=== PATIENT | male | born 1970 | race African-American/Black ===

== ENCOUNTER 2018-04-27 09:21 | Emergency (ER) | payer SELFPAY ==
[~2018-04-27] VITALS: Ht 177.8 cm; Wt 76.0 kg
[2018-04-27] MEDS ORDERED: SODIUM CHLORIDE 0.9% 1,000 ML IV ONE (09:44)
[2018-04-27 10:32] LABS: CLARITY URINE CLEAR (CLEAR); COLOR URINE YELLOW (YELLOW); KETONES URINE 1+ (NEGATIVE); LEUKOCYTE ESTERASE URINE NEGATIVE (NEGATIVE); NITRITE URINE NEGATIVE (NEGATIVE); OCCULT BLOOD URINE 1+ (NEGATIVE); PH URINE 5.5 (4.5-8.0); PROTEIN URINE NEGATIVE (NEGATIVE); SPECIFIC GRAVITY URINE 1.013 (1.005-1.030); UROBILINOGEN URINE 0.2 E.U./dL (0.2-1.0)
[2018-04-27 10:50] LABS: *AMPHETAMINES SCREEN URINE NEGATIVE (NEGATIVE)
[2018-04-27 10:51] LABS: *BARBITURATES SCREEN URINE NEGATIVE (NEGATIVE); *BENZODIAZEPINES SCREEN URINE NEGATIVE (NEGATIVE); *COCAINE SCREEN URINE PRESUMTIVE POSITIVE (NEGATIVE); CANNABINOID URINE SCREEN PRESUMTIVE POSITIVE (NEGATIVE); METHADONE URINE SCREEN NEGATIVE (NEGATIVE); OPIATES URINE SCREEN NEGATIVE (NEGATIVE)
[2018-04-27 10:52] LABS: PHENCYCLIDINE URINE SCREEN NEGATIVE (NEGATIVE)
[2018-04-27 10:54] LABS: CHLORIDE 104 mEq/L (98-107)
[2018-04-27 10:59] LABS: ETHANOL BLOOD 39 mg/dL
[2018-04-27 11:01] LABS: BASOPHILS % 0.4 % (0.0-2.0); EOSINOPHILS % 0.5 % (0.0-5.0); HEMATOCRIT. 44.7 % (42.0-52.0); HEMOGLOBIN. 15.4 g/dL (14.0-18.0); LYMPHOCYTES % 10.4 % (20.0-50.0); MEAN CORPUSCULAR HEMOGLOBIN 32.3 pg (28.0-32.0); MEAN CORPUSCULAR VOLUME 93.6 fL (80.0-94.0); MEAN PLATELET VOLUME 7.6 fl (7.4-10.4); MONOCYTES % 6.4 % (2.0-8.0); NEUTROPHILS % 82.3 % (40.0-76.0); PLATELET 217 x1000/uL (130-400); RED BLOOD CELL COUNT 4.77 mill/uL (4.7-6.1); RED CELL DISTRIBUTION WIDTH 13.2 % (11.6-14.6)
[2018-04-28 16:00] VITALS: BP 123/80
== END 2018-04-28 16:17 | disposition home or self-care (01) ==
LOC: ER 09:21 → EDBD 09:21 → ER 04-28 16:17
DX: R45.851 Suicidal ideations (principal); F41.0 Panic disorder [episodic paroxysmal anxiety]; R11.2 Nausea with vomiting, unspecified; Z88.1 Allergy status to other antibiotic agents; R07.9 Chest pain, unspecified
CPT/HCPCS: 36415; 71045; 80053; 80305; 81003; 84484; 85025; 93005; 96360; 96361; 99285; G0482; J7030; Z7610

== ENCOUNTER 2018-05-06 06:13 | Emergency (ER) | payer SELFPAY ==
[~2018-05-06] VITALS: Ht 170.2 cm; Wt 84.0 kg
[2018-05-06] MEDS ORDERED: TETANUS, DIPHTHERIA, PERTUSSIS VAC/PF 0.5ML (>7YR OLD) IM ONE (08:30)
[2018-05-06] MEDS ORDERED: BACITRACIN ZINC OINT UDPKT TOP ONE (08:30)
[2018-05-06] MEDS ORDERED: LIDOCAINE HCL/PF 1% 10 MG/ML 5ML VIAL IJ ONE (08:30)
[2018-05-06 10:46] VITALS: BP 138/91
== END 2018-05-06 10:52 | disposition home or self-care (01) ==
LOC: ER 06:13 → EDSEX 06:13 → ER 10:52
DX: S51.811A Laceration without foreign body of right forearm, initial encounter (principal); W26.0XXA Contact with knife, initial encounter; Y93.89 Activity, other specified; Y92.89 Other specified places as the place of occurrence of the external cause; Z88.1 Allergy status to other antibiotic agents; Z23 Encounter for immunization; F17.210 Nicotine dependence, cigarettes, uncomplicated
CPT/HCPCS: 12001; 90471; 90715; 99283; J3490; Z7610

== ENCOUNTER 2018-05-09 18:26 | Emergency (ER) | payer SELFPAY | END 2018-05-09 19:17 | disposition left against medical advice (07) | LOC: ER 18:50 | DX: Z48.01 Encounter for change or removal of surgical wound dressing (principal); Z53.21 Procedure and treatment not carried out due to patient leaving prior to being seen by health care provider ==

== ENCOUNTER 2018-07-07 17:25 | Emergency (ER) | payer SELFPAY ==
[~2018-07-07] VITALS: Ht 170.2 cm; Wt 76.0 kg
[2018-07-07] MEDS ORDERED: KETOROLAC 15MG/ML VIAL IM ONE (18:00)
[2018-07-07] MEDS ORDERED: AMOXICILLIN/POTASSIUM CLAVULANATE 875/125MG TAB PO ONE (19:00)
[2018-07-07 19:02] VITALS: BP 135/81
== END 2018-07-07 19:12 | disposition home or self-care (01) ==
LOC: ER 17:25
DX: S61.451A Open bite of right hand, initial encounter (principal); L03.113 Cellulitis of right upper limb; F17.200 Nicotine dependence, unspecified, uncomplicated; Z90.49 Acquired absence of other specified parts of digestive tract; Z88.1 Allergy status to other antibiotic agents; Y04.1XXA Assault by human bite, initial encounter; Y93.89 Activity, other specified; Y92.89 Other specified places as the place of occurrence of the external cause; Y99.8 Other external cause status
CPT/HCPCS: 73110; 73130; 96372; 99284; J1885

== ENCOUNTER 2019-04-06 07:37 | Emergency (ER) | payer MEDICAID ==
[~2019-04-06] VITALS: Ht 170.2 cm; Wt 81.0 kg
[2019-04-06] MEDS ORDERED: GUAIFENESIN/DM 600MG/30MG ER TAB 12HR PO STA (10:21)
[2019-04-06 11:20] VITALS: BP 128/65
== END 2019-04-06 11:30 | disposition home or self-care (01) ==
LOC: ER 07:37
DX: J40 Bronchitis, not specified as acute or chronic (principal); Z90.89 Acquired absence of other organs; Z88.1 Allergy status to other antibiotic agents
CPT/HCPCS: 71045; 99283

== ENCOUNTER 2019-05-19 05:23 | Emergency (ER) | payer MEDICAID ==
[~2019-05-19] VITALS: Ht 170.2 cm; Wt 78.0 kg
[2019-05-19] MEDS ORDERED: TETANUS, DIPHTHERIA, PERTUSSIS VAC/PF 0.5ML (>7YR OLD) IM ONE (06:30)
[2019-05-19] MEDS ORDERED: ACETAMINOPHEN 325MG TABLET PO STA (07:24)
[2019-05-19 07:59] VITALS: BP 125/65
== END 2019-05-19 08:01 | disposition home or self-care (01) ==
LOC: ER 05:23
DX: S61.451A Open bite of right hand, initial encounter (principal); S00.81XA Abrasion of other part of head, initial encounter; Y07.04 Female partner, perpetrator of maltreatment and neglect; Y04.1XXA Assault by human bite, initial encounter; J06.9 Acute upper respiratory infection, unspecified; Y93.89 Activity, other specified; Y92.89 Other specified places as the place of occurrence of the external cause; Z88.3 Allergy status to other anti-infective agents; Z23 Encounter for immunization
CPT/HCPCS: 71045; 73130; 90471; 90715; 93005; 99283

== ENCOUNTER 2019-05-19 08:39 | Emergency (ER) | payer MEDICAID ==
[~2019-05-19] VITALS: Ht 170.2 cm; Wt 77.0 kg
[2019-05-19 11:12] LABS: BASOPHILS % 0.4 % (0.0-2.0); EOSINOPHILS % 0.5 % (0.0-5.0); HEMATOCRIT. 43.5 % (42.0-52.0); HEMOGLOBIN. 15.6 g/dL (14.0-18.0); LYMPHOCYTES % 11.7 % (20.0-50.0); MEAN CORPUSCULAR VOLUME 91.8 fL (80.0-94.0); MEAN PLATELET VOLUME 6.6 fl (7.4-10.4); MONOCYTES % 8.1 % (2.0-8.0); NEUTROPHILS % 79.3 % (40.0-76.0); PLATELET 210 x1000/uL (130-400); RED BLOOD CELL COUNT 4.74 mill/uL (4.7-6.1)
[2019-05-19 11:19] LABS: CHLORIDE 110 mEq/L (98-107)
[2019-05-19 11:24] LABS: ETHANOL BLOOD < 10 mg/dL
[2019-05-19 11:30] LABS: CLARITY URINE CLEAR (CLEAR); COLOR URINE YELLOW (YELLOW); KETONES URINE NEGATIVE (NEGATIVE); LEUKOCYTE ESTERASE URINE NEGATIVE (NEGATIVE); NITRITE URINE NEGATIVE (NEGATIVE); OCCULT BLOOD URINE TRACE (NEGATIVE); PROTEIN URINE NEGATIVE (NEGATIVE); SPECIFIC GRAVITY URINE 1.013 (1.005-1.030); UROBILINOGEN URINE 0.2 E.U./dL (0.2-1.0)
[2019-05-19 12:00] LABS: *AMPHETAMINES SCREEN URINE NEGATIVE (NEGATIVE); *BARBITURATES SCREEN URINE NEGATIVE (NEGATIVE); *BENZODIAZEPINES SCREEN URINE NEGATIVE (NEGATIVE); *COCAINE SCREEN URINE PRESUMTIVE POSITIVE (NEGATIVE)
[2019-05-19 12:04] LABS: CANNABINOID URINE SCREEN PRESUMTIVE POSITIVE (NEGATIVE); METHADONE URINE SCREEN NEGATIVE (NEGATIVE); OPIATES URINE SCREEN NEGATIVE (NEGATIVE)
[2019-05-19 12:05] LABS: PHENCYCLIDINE URINE SCREEN NEGATIVE (NEGATIVE)
[2019-05-20 15:15] VITALS: BP 112/80
== END 2019-05-20 15:15 | disposition home or self-care (01) ==
LOC: ER 08:51
DX: R45.851 Suicidal ideations (principal); Z90.49 Acquired absence of other specified parts of digestive tract; Z88.1 Allergy status to other antibiotic agents
CPT/HCPCS: 36415; 80305; 80320; 81003; 99284; G0480

== ENCOUNTER 2019-10-13 13:44 | Emergency (ER) | payer MEDICAID ==
[~2019-10-13] VITALS: Ht 170.2 cm; Wt 76.0 kg
[2019-10-13] MEDS ORDERED: LIDOCAINE HCL/PF 1% 10 MG/ML 5ML VIAL IJ ONE (15:45)
[2019-10-13] MEDS ORDERED: TETANUS, DIPHTHERIA, PERTUSSIS VAC/PF 0.5ML (>7YR OLD) IM ONE (15:45)
[2019-10-13 17:04] VITALS: BP 122/78
== END 2019-10-13 17:05 | disposition left against medical advice (07) ==
LOC: ER 13:44
DX: S01.411A Laceration without foreign body of right cheek and temporomandibular area, initial encounter (principal); Y04.2XXA Assault by strike against or bumped into by another person, initial encounter; Y93.89 Activity, other specified; Y92.89 Other specified places as the place of occurrence of the external cause; Y99.8 Other external cause status
CPT/HCPCS: 90715; 99281; J3490

== ENCOUNTER 2019-12-31 05:01 | Emergency (ER) | payer MEDICAID ==
[~2019-12-31] VITALS: Ht 170.2 cm; Wt 67.0 kg
[2019-12-31 05:07] VITALS: BP 121/75
== END 2019-12-31 05:37 | disposition home or self-care (01) ==
LOC: ER 05:22
DX: R05 Cough (principal)
CPT/HCPCS: 99283

== ENCOUNTER 2020-07-02 01:51 | Emergency (ER) | payer MEDICAID ==
[~2020-07-02] VITALS: Ht 170.2 cm; Wt 76.4 kg
[2020-07-02] MEDS ORDERED: IBUPROFEN 600MG TABLET PO ONE (02:15)
[2020-07-02 02:57] VITALS: BP 120/76
== END 2020-07-02 03:51 | disposition home or self-care (01) ==
LOC: ER 01:51
DX: S50.12XA Contusion of left forearm, initial encounter (principal); Y00.XXXA Assault by blunt object, initial encounter; Y93.89 Activity, other specified; Y92.89 Other specified places as the place of occurrence of the external cause; R03.0 Elevated blood-pressure reading, without diagnosis of hypertension
CPT/HCPCS: 73090; 99283